=== PATIENT | male | born 2000 | race Two or more races ===

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

== ENCOUNTER 2020-12-04 16:27 | Inpatient (IN) | payer OTHER ==
[~2020-12-04] VITALS: Ht 177.8 cm; Wt 66.4 kg
== END 2020-12-06 17:45 | disposition designated cancer center or children's hospital (05) | DRG 316 ==
LOC: EMR PED 16:27 → ER 17:10 → PED 12-05 20:34
PROVIDERS: ADMIT Emergency Medicine; ATTEND Emergency Medicine
PROC: B24BYZZ Ultrasonography of Heart with Aorta using Other Contrast (ICD-10-PCS; principal; 2020-12-06)
DX: I40.8 Other acute myocarditis (principal); R00.2 Palpitations; Z20.822 Contact with and (suspected) exposure to COVID-19

== ENCOUNTER 2021-04-23 16:38 | Emergency (ER) | payer OTHER ==
[~2021-04-23] VITALS: Ht 177.8 cm; Wt 69.4 kg
== END 2021-04-23 22:44 | disposition home or self-care (01) ==
LOC: ER 16:38 → EMR PED 16:38 → ER 17:35
DX: R07.89 Other chest pain (principal)

== ENCOUNTER 2023-01-11 21:13 | Emergency (ER) | payer OTHER ==
[~2023-01-11] VITALS: Ht 180.3 cm; Wt 77.6 kg
== END 2023-01-12 02:36 | disposition home or self-care (01) ==
LOC: ER 21:13
DX: M94.0 Chondrocostal junction syndrome [Tietze] (principal)

== ENCOUNTER 2024-08-10 18:50 | Emergency (ER) | payer OTHER ==
[~2024-08-10] VITALS: Ht 170.2 cm; Wt 74.8 kg
[2024-08-10] MEDS ORDERED: KETOROLAC TROMETHAMINE 60 MG VIAL IM ONE (19:30)
[2024-08-10] MEDS ORDERED: TRIAMCINOLONE ACETONIDE 40 MG/ML VIAL IM ONE (19:30)
[2024-08-10] MEDS ORDERED: NORFLEX100MG PO (20:08)
[2024-08-10] MEDS ORDERED: DICLOFENAC SODI75 MG PO (20:08)
== END 2024-08-10 20:21 | disposition home or self-care (01) ==
LOC: ER 18:52
DX: M54.2 Cervicalgia (principal)

== ENCOUNTER 2024-09-05 19:05 | Emergency (ER) | payer OTHER ==
[~2024-09-05] VITALS: Ht 177.8 cm; Wt 74.8 kg
[~2024-09-05 19:05] MED LIST changes: +DICLOFENAC SODI75 MG PO; +NORFLEX100MG PO
[2024-09-05 19:13] VITALS: BP 122/81; O2SAT 97
[2024-09-05] MEDS ORDERED: ACETAMINOPHEN 500 MG GEL..CAP PO ONE (20:15)
[2024-09-05 20:40] LABS: HEMATOCRIT 45.5 % (39.0-48.0); HEMOGLOBIN 15.7 g/dL (13-16.00); MEAN CELL VOLUME 87.5 fL (80.0-100.00); MEAN CORPUSCULAR HEMOGLOBIN 30.3 pg (27.00-32.0); MEAN CORPUSCULAR HGB CONC 34.6 g/dl (32.0-36.0); PLATELET COUNT 256 K/uL (150-450); RED BLOOD COUNT 5.19 M/uL (4.00-6.00); RED CELL DISTRIBUTION WIDTH 12.6 % (11.5-14.5)
[2024-09-05 21:01] LABS: PH,URINE 6.5 (5.0-8.0); URINE APPEARANCE Clear; URINE BILIRRUBIN Negative (NEGATIVE); URINE BLOOD Negative; URINE COLOR Yellow; URINE GLUCOSE Negative (NEGATIVE); URINE KETONE 15 (NEGATIVE); URINE LEUKOCYTE Negative; URINE NITRATE Negative; URINE PROTEIN Trace (NEGATIVE)
[2024-09-05 21:03] LABS: CALCIUM 9.1 mg/dL (8.5-10.1); CREATININE SERUM 1.15 mg/dL (0.70-1.30); GFR 78.13; POTASSIUM 3.74 mEq/L (3.5-5.1)
[2024-09-05 21:05] LABS: URINE EPITHELIAL CELLS 1.4 uL (0.0-38.8); URINE WBC 3.6 uL (0.0-23.2)
[2024-09-05 21:16] LABS: URINE BACTERIA 3.6 uL (0.0-1933); URINE RBC 0.8 uL (0.0-20.8)
[2024-09-05] MEDS ORDERED: KETOROLAC TROMETHAMINE 10 MG TABLET PO PRN (22:00)
== END 2024-09-05 22:10 | disposition home or self-care (01) ==
LOC: ER 19:08
PROVIDERS: Emergency Medicine
DX: N50.811 Right testicular pain (principal); N50.812 Left testicular pain; R10.2 Pelvic and perineal pain

== ENCOUNTER 2024-09-18 14:22 | Emergency (ER) | payer OTHER ==
[~2024-09-18] VITALS: Ht 177.8 cm; Wt 68.0 kg
[2024-09-18 14:50] VITALS: BP 129/87; O2SAT 100
[2024-09-18] MEDS ORDERED: CEFTRIAXONE SODIUM 1,000 MG VIAL IM ONE (16:15)
[2024-09-18] MEDS ORDERED: KETOROLAC TROMETHAMINE 60 MG VIAL IM ONE ×2 (16:15→16:23)
[2024-09-18] MEDS ORDERED: TAMSULOSIN HCL 0.4 MG CAP PO ONE ×2 (16:15→16:23)
[2024-09-18] MEDS ORDERED: CEFTRIAXONE SODIUM 1,000 MG VIAL ONE (16:23)
[2024-09-18] MEDS ORDERED: LIDOCAINE HCL 1% 10ML VIAL ONE (16:24)
[2024-09-18 17:03] LABS: HEMATOCRIT 49.2 % (39.0-48.0); MEAN CELL VOLUME 88.9 fL (80.0-100.00); MEAN CORPUSCULAR HEMOGLOBIN 30.7 pg (27.00-32.0); MEAN CORPUSCULAR HGB CONC 34.5 g/dl (32.0-36.0); PLATELET COUNT 214 K/uL (150-450); RED BLOOD COUNT 5.53 M/uL (4.00-6.00); RED CELL DISTRIBUTION WIDTH 13.8 % (11.5-14.5)
[2024-09-18 17:13] LABS: PH,URINE 5.5 (5.0-8.0); URINE APPEARANCE Clear; URINE BILIRRUBIN Negative (NEGATIVE); URINE BLOOD Negative; URINE COLOR Yellow; URINE GLUCOSE Negative (NEGATIVE); URINE KETONE Trace (NEGATIVE); URINE LEUKOCYTE Negative; URINE NITRATE Negative; URINE PROTEIN Negative (NEGATIVE)
[2024-09-18 17:14] LABS: URINE BACTERIA 18.3 uL (0.0-1933); URINE EPITHELIAL CELLS 2.5 uL (0.0-38.8); URINE WBC 4.5 uL (0.0-23.2)
[2024-09-18 17:19] LABS: URINE CAST 0.58 uL (0.0-1.40); URINE RBC 1.3 uL (0.0-20.8)
[2024-09-18 17:29] LABS: ALBUMIN 4.6 gm/dL (3.4-5.0); BILIRUBIN TOTAL 1.08 mg/dL (0.3-1.2); CALCIUM 9.8 mg/dL (8.5-10.1); CREATININE SERUM 0.89 mg/dL (0.70-1.30); GFR 105.02; GLOBULINA 3.6 G/DL (2.4-3.5); POTASSIUM 3.88 mEq/L (3.5-5.1); TOTAL PROTEIN 8.2 gm/dL (6.4-8.2)
[2024-09-18] MEDS ORDERED: KETO10TA2 PO (17:37)
[2024-09-18] MEDS ORDERED: NORFLEX100MG PO (17:37)
== END 2024-09-18 18:16 | disposition home or self-care (01) ==
LOC: ER 14:25
PROVIDERS: General Practice
DX: R10.9 Unspecified abdominal pain (principal)